=== PATIENT | male | born 1950 | race Caucasian/White ===

== ENCOUNTER 2019-04-16 09:55 | Observation (INO) | payer MEDICARE, OTHER ==
[2019-04-16] MEDS ORDERED: SODIUM CHLORIDE 0.9% 1,000 ML IV STA ×2 (10:28→11:55)
[2019-04-16] MEDS ORDERED: ONDANSETRON 4 MG/2 ML VIAL IVP STA (10:28)
[2019-04-16 10:47] LABS: Basophils % (A) 0 %; Eosinophils # (A) 0.4 k/uL (0-0.7); Eosinophils % (A) 4 %; HCT 39.2 % (39.0-53.0); HGB 13.8 gm/dL (13.0-17.5); Lymphocytes # (A) 1.8 k/uL (1.0-4.8); Lymphocytes % (A) 21 %; MCH 31.6 pg (25.0-35.0); MCHC 35.2 g/dL (31.0-37.0); MCV 89.6 fL (80.0-100.0); Mean Platelet Volume 6.7; Monocytes # (A) 1.1 k/uL (0-1.0); Monocytes % (A) 13 %; Neutrophils # (A) 5.2 k/uL (1.3-7.7); Neutrophils % (A) 61 %; Platelet Count 243 k/uL (150-450); RBC 4.37 m/uL (4.30-5.90); RDW 14.6 % (11.5-15.5); WBC 8.6 k/uL (3.8-10.6)
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
[2019-04-16 11:02] LABS: Albumin 4.3 g/dL (3.5-5.0); Calcium 9.5 mg/dL (8.4-10.2); Total Bilirubin 0.9 mg/dL (0.2-1.3); Total Protein 7.8 g/dL (6.3-8.2)
[2019-04-16 11:05] LABS: Appearance,Urine Clear (Clear); Bilirubin,Urine Negative (Negative); Blood,Urine Negative (Negative); Color,Urine Light Yellow; Glucose,Urine (UA) Negative (Negative); Ketones,Urine Negative (Negative); Leukocyte Esterase,Urine Negative (Negative); Mucus,Urine Rare /hpf; Nitrite,Urine Negative (Negative); PH, Urine 5.5 (5.0-8.0); Protein,Urine 1+ (Negative); RBC,Urine <1 /hpf (0-5); Specific Gravity,Urine 1.008 (1.001-1.035); Urobilinogen,Urine <2.0 mg/dL (<2.0)
[2019-04-16] MEDS ORDERED: LOPERAMIDE 2 MG CAP PO STA (11:26)
[2019-04-16] MEDS ORDERED: ONDANSETRON 4 MG/2 ML VIAL IVP PRN (11:56)
[2019-04-16] MEDS ORDERED: NALOXONE 0.4 MG/ML 1 ML VIAL IV PRN (11:56)
[2019-04-16] MEDS ORDERED: LOPERAMIDE 2 MG CAP PO PRN (11:56)
[2019-04-16] MEDS: 0.9% NACL WITH KCL 20 MEQ/L 1,000 ML IV SCH (14:39)
[2019-04-16] MEDS: FAMOTIDINE 20 MG TAB PO SCH (20:16)
[2019-04-16] MEDS: TAMSULOSIN 0.4 MG CAP.ER.24H PO SCH (20:17)
[2019-04-16] MEDS: LORazepam 1 MG TAB PO PRN (20:19)
[2019-04-16] MEDS ORDERED: amLODIPine 5 MG TAB PO SCH (21:00)
[2019-04-16] MEDS ORDERED: ATORVASTATIN 10 MG TAB PO SCH (21:00)
[2019-04-16] MEDS ORDERED: DIVALPROEX ER 500 MG TAB.ER.24H PO SCH (21:00)
[2019-04-16 22:07] VITALS: RESP 16
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
[2019-04-17] MEDS: 0.9% NACL WITH KCL 20 MEQ/L 1,000 ML IV SCH ×2 (00:21→12:17)
[2019-04-17 07:00] LABS: Glucose,Whole Blood 94 mg/dL (75-99)
[2019-04-17] MEDS ORDERED: ENOXAPARIN 40 MG/0.4 ML SYRINGE SQ SCH (09:00)
[2019-04-17] MEDS ORDERED: DIVALPROEX ER 500 MG TAB.ER.24H PO SCH (09:00)
[2019-04-17] MEDS: FAMOTIDINE 20 MG TAB PO SCH (09:32)
[2019-04-17] MEDS: TAMSULOSIN 0.4 MG CAP.ER.24H PO SCH (09:32)
[2019-04-17] MEDS: LORazepam 1 MG TAB PO PRN (09:43)
[2019-04-17 10:06] LABS: Calcium 8.7 mg/dL (8.4-10.2); Potassium 4.3 mmol/L (3.5-5.1)
[2019-04-17 11:52] VITALS: BP 144/71; PULSE 76; TEMP 98.3
--- NOTE | 2019-04-17 16:02 | US ---
EXAMINATION TYPE: US kidneys/renal and bladder DATE OF EXAM: 04/17/2019 COMPARISON: NONE CLINICAL HISTORY: RF. Diabetic; elevated creatinine level EXAM MEASUREMENTS: Right Kidney: 12.1 x 6.5 x 4.5 cm Left Kidney: 10.8 x 5.3 x 5.9 cm Post Void Residual Volume: not assessed on inpatient Right Kidney: multiple small cysts noted throughout kidney with largest at upper pole = 1.6 x 1.4 x 1 .5cm; poor corticomedullary differentiation is noted Left Kidney: multiple small cysts noted throughout kidney with largest at upper pole = 1.1 x 1.0 x 0. 9cm; poor corticomedullary differentiation is noted Bladder: wnl Bilateral Jets seen: not seen after 3 minute observation IMPRESSION: Poor corticomedullary differentiation suggesting chronic medical renal disease with bilateral renal c ysts.
--- NOTE | 2019-04-17 19:15 | CONS ---
CONSULTATION REASON FOR CONSULT: Renal failure. HISTORY OF PRESENT ILLNESS: Patient is a 68-year-old male who was admitted to the hospital with complaints of nausea and vomiting. Not feeling well. He felt extremely tired. The patient also noticed he had decreased urine output. The patient states he was told he has stage 3 kidney disease for at least a year now. However, he used to follow up with Dr. Tejas Lo in [place] but has not been seen recently. He actually has an appointment to see me in the [place] office in May. The patient denies any use of nonsteroidal anti-inflammatory agents prior to admission. His serum creatinine on admission was 2.43. The patient is maintained on IV fluids. His creatinine is down to 2.02 and we do not have any previous labs available for comparison. The patient states he has been voiding well. PAST MEDICAL HISTORY: Significant for type 2 diabetes, hypertension, stage III CKD, bipolar disorder. PAST SURGICAL HISTORY: Adenoidectomy and tonsillectomy, brain surgery as an . SOCIAL HISTORY: Negative for smoking, drug abuse or alcohol abuse. MEDICATIONS: Prior to admission included Depakote, Ativan, Zantac, Zocor, Flomax, Norvasc. ALLERGIES: None. PHYSICAL EXAMINATION: Patient is currently comfortable, awake, alert, oriented x3, not in any acute distress. Blood pressure was 144/71, heart rate 76 per minute. He is afebrile. Examination of the heart S1, S2. Examination of the lungs, bilateral breath sounds are heard. Abdomen is soft, nontender. Exam of lower extremities shows no significant edema. COMPTROLLER exam grossly intact. LABS: Show sodium 146, potassium 4.3, chloride 116, BUN 24, serum creatinine 2.02. UA shows 1+ protein, otherwise quite unremarkable. ASSESSMENT: 1. Acute kidney injury prerenal currently improved. Continue with IV fluids. 2. Chronic kidney disease stage 3, baseline creatinine not known. The patient is scheduled for followup as outpatient. 3. Metabolic acidosis secondary to renal failure, currently improved. 4. History of bipolar disorder, maintained on Depakote, which we can continue. 5. Dyslipidemia. 6. Benign prostatic hypertrophy, maintained on Flomax. PLAN: Continue with IV fluids. Follow up as outpatient. I will order an ultrasound of the kidneys. The patient can actually be discharged with plans to follow up as outpatient. Thank you for this consultation. We will continue to follow the patient with you during his hospitalization. JESÚS / VAL: [id number] /
--- NOTE | 2019-04-18 00:15 | P.DS ---
Providers Date of admission: 04/16/19 11:56 Expected date of discharge: 04/17/19 Attending physician: Harpreet Leal Consults: 04/16/19 11:56 Consult Physician Stat Consulting Provider: Courtney Mayberry Consult Reason/Comments: Kidney failure with metabolic acidosis Do you want consulting provider notified?: Yes Primary care physician: [facility] Course: History of presenting complaint: This is a 68-year-old patient follows with Dr. Paris. Chronic stable medical conditions include diabetes, GERD, hyperlipidemia, hypertension, chronic kidney disease stage III due to breathing use, chronic anemia chronic pancreatitis. Patient also had cranial surgery as an infant with a plate. Patient lives in a residential called [facility]. patient on Tuesday evening started of with nausea vomiting diarrhea. Also had a low-grade fever and chills. Had some abdominal discomfort. The symptoms continued into yesterday that is Tuesday. Patient is feeling weak tired rundown. And decreased urine output. Given his chronic kidney disease he was concerned about the same and presented to the hospital. Put on IV fluids admitted for the same. Patient's symptoms of gastroenteritis all settled down. Doing well. Responded well to IV fluids good urine output. By the time of discharge feeling well. Discussed at length with the patient. Consultation: Dr. Mayberry from nephrology Physical examination: VITAL SIGNS: 98.3, 76, 16, 140/71, 96% room air GENERAL: Average built, lying in bed, tired appearing. EYES: Pupils equal. Conjunctiva normal. HEENT: External appearance of nose and ears normal, oral cavity a bit dry. NECK: JVD not raised; masses not palpable. HEART: First and second heart sounds are normal; no edema. LUNGS: Respiratory rate normal; clear to auscultation. ABDOMEN: Soft, nontender, liver spleen not palpable, no masses palpable. PSYCH: Alert and oriented x3; mood and affect anxiousl. NEUROLOGICAL: Cranial nerves grossly intact; no facial asymmetry, power and sensation grossly intact. LYMPHATICS: No lymph nodes palpable in the axilla and neck INVESTIGATIONS, reviewed in the clinical context: Creatinine 2.02. It was 2.43 admission. UA shows protein 1+ Valproic acid 50.9 Discharge diagnosis: -Most likely acute food poisoning/acute gastroenteritis causing nausea vomiting diarrhea with associated fever and chills, resolved -Acute dehydration from above, leading to decreased urine output -Chronic kidney disease stage III from prior lithium injury -Metabolic acidosis from chronic kidney injury -Diabetes mellitus type 2 on oral hypoglycemic -GERD -Hyperlipidemia -Hypertensive kidney disease -Anemia of chronic kidney disease -BPH -Bipolar disorder -Acute renal failure, prerenal, POA Disposition: AFC Patient Condition at Discharge: Fair Plan - Discharge Summary Discharge Rx Participant: No New Discharge Prescriptions: Continue Ranitidine HCl [Zantac] 150 mg PO BID LORazepam [Ativan] 1 mg PO TID amLODIPine [Norvasc] 5 mg PO HS Tamsulosin [Flomax] 0.4 mg PO DAILY Simvastatin [Zocor] 20 mg PO HS Divalproex ER [Depakote ER] 1,000 mg PO HS Divalproex ER [Depakote ER] 500 mg PO DAILY Discharge Medication List Divalproex ER [Depakote ER] 1,000 mg PO HS 04/16/19 [History] Divalproex ER [Depakote ER] 500 mg PO DAILY 04/16/19 [History] LORazepam [Ativan] 1 mg PO TID 04/16/19 [History] Ranitidine HCl [Zantac] 150 mg PO BID 04/16/19 [History] Simvastatin [Zocor] 20 mg PO HS 04/16/19 [History] Tamsulosin [Flomax] 0.4 mg PO DAILY 04/16/19 [History] amLODIPine [Norvasc] 5 mg PO HS 04/16/19 [History] Follow up Appointment(s)/Referral(s): Courtney Mayberry MD [STAFF PHYSICIAN] - 1 Week (Dr. Mayberry's office will call patient with an appointment date and time. ) Noe Mendez NPC [REFERRING] - 04/25/19 1:30 pm Ambulatory/Diagnostic Orders: Basic Metabolic Panel [LAB.AMB] Time Frame: 3 Days, Location: None Selected Patient Instructions/Handouts: Acute Kidney Injury (DC), Acute Nausea and Vomiting (ED) Activity/Diet/Wound Care/Special Instructions: Discharge patient at 5 PM. Give IV fluids until discharge. Discharge Disposition: HOME SELF-CARE
[2019-04-18] MEDS ORDERED: FAMOTIDINE 20 MG TAB PO SCH (09:00)
== END 2019-04-17 17:28 | disposition home or self-care (01) ==
LOC: EC 09:55 → 3NMEDONC 11:56
PROVIDERS: ADMIT Hospitalist; ATTEND Hospitalist
DX: R11.2 Nausea with vomiting, unspecified (principal); R19.7 Diarrhea, unspecified; R50.9 Fever, unspecified; E86.0 Dehydration; E11.22 Type 2 diabetes mellitus with diabetic chronic kidney disease; I12.9 Hypertensive chronic kidney disease with stage 1 through stage 4 chronic kidney disease, or unspecified chronic kidney disease; N18.3 Chronic kidney disease, stage 3 (moderate); E87.2 Acidosis; Z79.84 Long term (current) use of oral hypoglycemic drugs; K21.9 Gastro-esophageal reflux disease without esophagitis; E78.5 Hyperlipidemia, unspecified; D63.1 Anemia in chronic kidney disease; N40.0 Benign prostatic hyperplasia without lower urinary tract symptoms; F31.9 Bipolar disorder, unspecified; N17.9 Acute kidney failure, unspecified; R41.3 Other amnesia; Z87.19 Personal history of other diseases of the digestive system; Z87.09 Personal history of other diseases of the respiratory system; Z79.899 Other long term (current) drug therapy; E66.9 Obesity, unspecified; Z68.26 Body mass index [BMI] 26.0-26.9, adult; Z82.0 Family history of epilepsy and other diseases of the nervous system; Z82.49 Family history of ischemic heart disease and other diseases of the circulatory system; Z82.69 Family history of other diseases of the musculoskeletal system and connective tissue
CPT/HCPCS: 96361; 96374; 96375; 99284; 36415; 80164; 80053; 80048; 82150; 83690; 85025; 81001; 76770; G0378 ×2; J2405; J1650

== ENCOUNTER 2024-01-17 17:48 | Inpatient (IN) | payer MEDICARE, OTHER ==
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
[2024-01-17 18:21] LABS: Basophils % (A) 0 %; Eosinophils # (A) 0.3 k/uL (0-0.7); Eosinophils % (A) 3 %; HCT 40.5 % (39.0-53.0); HGB 13.5 gm/dL (13.0-17.5); Lymphocytes # (A) 2.5 k/uL (1.0-4.8); Lymphocytes % (A) 28 %; MCH 32.6 pg (25.0-35.0); MCHC 33.3 g/dL (31.0-37.0); MCV 97.8 fL (80.0-100.0); Mean Platelet Volume 7.2; Monocytes # (A) 0.7 k/uL (0-1.0); Monocytes % (A) 7 %; Neutrophils # (A) 5.6 k/uL (1.3-7.7); Neutrophils % (A) 61 %; Platelet Count 160 k/uL (150-450); RBC 4.14 m/uL (4.30-5.90); RDW 13.9 % (11.5-15.5); WBC 9.2 k/uL (3.8-10.6)
[2024-01-17 18:29] LABS: Partial Thromboplastin Time 22.6 sec (22.0-30.0); Prothrombin Time 11.3 sec (10.0-12.5)
[2024-01-17 18:31] LABS: ALT 18 U/L (4-49); AST 28 U/L (17-59); African American GFR (CKD) 32 (>60 ml/min/1.73 sqM); Albumin 4.2 g/dL (3.5-5.0); Alkaline Phosphatase 66 U/L (38-126); Anion Gap 9 mmol/L; Blood Urea Nitrogen 33 mg/dL (9-20); Calcium 9.9 mg/dL (8.4-10.2); Carbon Dioxide 22 mmol/L (22-30); Chloride 110 mmol/L (98-107); Creatine Kinase 60 U/L (55-170); Glucose 106 mg/dL (74-99); Non-African American GFR(CKD) 27 (>60 ml/min/1.73 sqM); Potassium 4.6 mmol/L (3.5-5.1); Sodium 141 mmol/L (137-145); Total Bilirubin 0.5 mg/dL (0.2-1.3); Total Protein 7.6 g/dL (6.3-8.2)
--- NOTE | 2024-01-17 18:45 | CT ---
EXAMINATION TYPE: CODE STROKE: CT brain wo contr CT DLP: 1231.3 mGycm, Automated exposure control for dose reduction was used. DATE OF EXAM: 01/17/2024 6:16 PM COMPARISON: CT 09/08/2012. CLINICAL INDICATION:Male, 73 years old with history of Neuro deficit, acute, stroke suspected, Right side paralysis, right side facial droop. TECHNIQUE: Brain: Axial CT images of the brain were obtained with coronal and sagittal reformats created and rev iewed. Contrast used: None. Oral contrast used: None. FINDINGS: Extra-axial spaces: No abnormal extra-axial fluid collections. Basilar cisterns are patent. Ventricular system: Ventricles appear dilated in proportion to the degree of cerebral volume loss. Cerebral parenchyma: No increased attenuation to suggest acute intraparenchymal hemorrhage. The gra y-white matter interface appears maintained, without evidence to suggest acute ischemic changes.. Mo derate generalized brain volume loss with a bifrontal predominance redemonstrated. White matter unre markable by CT. Cerebellum: No acute abnormality. Mass effect: No evidence of mass effect or midline shift. Intracranial vasculature: Unremarkable Soft tissues: No acute or concerning abnormality. Visualized orbits: Orbital contents appear grossly intact. Calvarium/osseous structures: Similar appearance of the skull, with chronic and likely postoperative deformities noted superiorly and posteriorly. No acute fracture identified. Paranasal sinuses and mastoid air cells: Mild mucosal thickening in the right maxillary sinus. No sin us air-fluid levels. Mastoid air cells show no appreciable effusion. MRI is more sensitive for detecting acute processes such as infarct, and may be considered if clinica lly warranted. IMPRESSION: No acute intracranial CT abnormality.
--- NOTE | 2024-01-17 19:00 | CT ---
EXAMINATION TYPE: CT angio head neck DATE OF EXAM: 01/17/2024 6:32 PM COMPARISON: Concurrent CT head. CLINICAL INDICATION:Male, 73 years old with history of Neuro deficit, acute, stroke suspected; PHH, R T SIDE PARALYSIS/ RT FACIAL DROOP TECHNIQUE: Axially acquired helical CT angiogram of the head and neck was obtained with contrast. Axi al images are supplemented with 3D reconstructions which [facility] NASCET criteria used. Contrast used: 65ml mL of Isovue 370 with IV Contrast, Oral contrast used: None. CT DLP: 451.8 mGycm, Automated exposure control for dose reduction was used. FINDINGS: CTA Neck: A 3 vessel aortic arch is shown. No significant arch plaque or dissection seen. Right carotid system: The common carotid is patent. Minimal plaque at the bifurcation. There is no he modynamically significant diameter stenosis, dissection, nor pseudoaneurysm present. Left carotid system: The common carotid is patent. Mild mostly calcified plaque at the bifurcation. T here is no hemodynamically significant diameter stenosis, dissection, nor pseudoaneurysm present. Vertebral arteries: There is no significant atherosclerotic plaque at the origin of the right vertebr al artery. Calcified plaque close to the origin of the left vertebral artery with no significant stenosis suspec nghia. The vertebrals are then otherwise patent to the skull base. The right vertebral artery is dominant. Other: Visualized neck soft tissues show no concerning abnormality. Cervical spine shows mild degener ative changes. There is a patch of sclerosis in the T4 vertebral body, nonspecific; correlate for any cancer history, otherwise may be benign. Imaged portions of the lung apices are clear. CTA Head: Intracranial ICAs are patent. On the right, at the terminus the A1 segment ELENA is noted to be hypopla stic, with the distal aspect supplied from the left across the anterior communicating artery. Both AC As appear to be patent. On the left, terminus is unremarkable. There are patent bilateral MCAs and th e distal arborization patterns appear normal bilaterally. There is a patent right posterior communica ting artery. No appreciable left posterior communicating artery of any size. The intracranial vertebral arteries enhance normally. Basilar artery is patent and unremarkable. Norm al basilar bifurcation without evidence of aneurysm. Visualized proximal material spreader are patent. No intracranial large vessel occlusion, hemodynamically significant stenosis, aneurysm, dissection, o r arteriovenous malformation is shown. The dural venous sinuses show no gross evidence of thrombosis. Other: Please refer to same-day CT head report for further description of findings. IMPRESSION: CTA neck: 1. Patent CTA neck. No dissection or pseudoaneurysm detected in the carotid or vertebral arteries in the neck. 2. Mild atherosclerotic disease is present, without evidence of hemodynamically significant stenosis at the carotid bifurcations/proximal ICAs. CTA head: Patent CTA head. No intracranial large vessel occlusion, significant stenosis, or sizable aneurysm de tected in the limits of CTA.
[2024-01-17] MEDS: ASPIRIN 325 MG TAB PO STA (21:04)
[2024-01-17] MEDS: SODIUM CHLORIDE 0.9% 1,000 ML IV SCH (21:05)
--- NOTE | 2024-01-17 22:00 | XR ---
EXAMINATION TYPE: XR chest 2V DATE OF EXAM: 01/17/2024 9:56 PM CLINICAL INDICATION:Male, 73 years old with history of altered mental status; [facility] COMPARISON: Chest radiographs from 08/30/2012 TECHNIQUE: XR chest 2V Frontal and lateral views of the chest. FINDINGS: Lungs/Pleura: There is flattening of the diaphragm with increased lucency of the lungs. No evidence o f pneumothorax, pleural effusion or focal consolidation. Pulmonary vascularity: Unremarkable. Heart/mediastinum: Cardiomediastinal silhouette is unremarkable. Musculoskeletal: No acute osseous pathology. IMPRESSION: 1. No acute cardiopulmonary disease process. 2. COPD changes.
[2024-01-17] MEDS: LORazepam 1 MG TAB PO PRN (22:08)
[2024-01-18] MEDS: TAMSULOSIN 0.4 MG CAP.ER.24H PO SCH (06:10)
[2024-01-18] MEDS: amLODIPine 5 MG TAB PO SCH (06:10)
[2024-01-18] MEDS: DIVALPROEX ER 500 MG TAB.ER.24H PO SCH ×2 (06:11→21:37)
[2024-01-18] MEDS: allopurinoL 100 MG TAB PO SCH (06:12)
[2024-01-18] MEDS: ASPIRIN 325 MG TAB PO SCH (08:33)
[2024-01-18 09:35] LABS: Chol/HDL Ratio 3.05 Ratio; LDL Cholesterol,Calculated 74.8 mg/dL (0.0-131.0)
[2024-01-18 11:42] LABS: African American GFR (CKD) 39 (>60 ml/min/1.73 sqM); Anion Gap 5 mmol/L; Blood Urea Nitrogen 28 mg/dL (9-20); Calcium 9.3 mg/dL (8.4-10.2); Carbon Dioxide 23 mmol/L (22-30); Chloride 111 mmol/L (98-107); Glucose 229 mg/dL (74-99); Non-African American GFR(CKD) 34 (>60 ml/min/1.73 sqM); Sodium 139 mmol/L (137-145)
[2024-01-18 11:45] LABS: Potassium 4.4 mmol/L (3.5-5.1)
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
[2024-01-18] MEDS: CLOPIDOGREL 75 MG TAB PO SCH (15:11)
--- NOTE | 2024-01-18 16:34 | CA ---
Transthoracic Echo Report Name: Ray Francisco Age: 73 Gender: M : 1950 Exam Date: 01/18/2024 10:46 Exam Location: [facility] Ht (in): 71 Wt (lb): 139 Ordering Physician: Alan Santana DO Attending/Referring Phys: Communication Instructor Aida Cheema RDCS Procedure CPT: Indications: Thrombus Cardiac Hx: Technical Quality: Very technically difficult study Contrast 1: Total Dose (mL): Contrast 2: Total Dose (mL): MEASUREMENTS (Male / Female) Normal Values 2D ECHO LV Diastolic Diameter PLAX 4.8 cm 4.2 - 5.9 / 3.9 - 5.3 cm LV Systolic Diameter PLAX 2.9 cm IVS Diastolic Thickness 1.1 cm 0.6 - 1.0 / 0.6 - 0.9 cm LVPW Diastolic Thickness 1.3 cm 0.6 - 1.0 / 0.6 - 0.9 cm LV Relative Wall Thickness 0.5 DOPPLER AV Peak Velocity 149.7 cm/s AV Peak Gradient 9.0 mmHg AV Mean Velocity 102.6 cm/s AV Mean Gradient 4.7 mmHg AV Velocity Time Integral 26.2 cm LVOT Peak Velocity 122.2 cm/s LVOT Peak Gradient 6.0 mmHg LVOT Velocity Time Integral 24.8 cm MV Area PHT 4.0 cm??? Mitral E Point Velocity 66.2 cm/s Mitral A Point Velocity 81.7 cm/s Mitral E to A Ratio 0.8 MV Deceleration Time 190.5 ms TR Peak Velocity 260.5 cm/s TR Peak Gradient 27.1 mmHg Right Ventricular Systolic Press 32.1 mmHg FINDINGS Left Ventricle Mildly increased left ventricular wall thickness. Left ventricular cavity size normal. Left ventricular ejection fraction is estimated at 55 %. Right Ventricle Right ventricle not well visualized. Right ventricular systolic pressure within normal limits. Right Atrium Right atrium not well visualized. Left Atrium Left atrium not well visualized. Mitral Valve Mitral valve not well visualized. No mitral regurgitation. No mitral stenosis. Aortic Valve Aortic valve not well visualized. No aortic stenosis. No aortic regurgitation. Tricuspid Valve Tricuspid valve not well visualized. Mild tricuspid regurgitation. Pulmonic Valve Pulmonic valve not well visualized. Pericardium No pericardial effusion. Aorta Aortic root and proximal ascending aorta not well visualized. CONCLUSIONS Very technically difficult study. Limited study to look for LV thrombus. No clear evidence of LV thrombus on contrast imaging. LVEF 50 to 55% Cannot comment on wall motion abnormality or valvular function due to limited imaging Previewed by: Dr Atilio Guzman (Electronically Signed) Final Date: 18 Jan 2024 16:33
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
[2024-01-18] MEDS ORDERED: ATORVASTATIN 10 MG TAB PO SCH (19:00)
[2024-01-18 20:40] LABS: Glucose,Whole Blood 122 mg/dL (70-110)
[2024-01-18] MEDS: ATORVASTATIN 40 MG TAB PO SCH (21:37)
[2024-01-18] MEDS: FAMOTIDINE 20 MG TAB PO SCH (21:37)
[2024-01-18] MEDS: HEPARIN SODIUM,PORCINE 5,000 UNIT/ML 1 ML VIAL SQ SCH (21:37)
[2024-01-19 05:55] LABS: Glucose,Whole Blood 102 mg/dL (70-110)
[2024-01-19] MEDS: ASPIRIN 81 MG PO SCH (09:57)
[2024-01-19 11:22] LABS: Glucose,Whole Blood 122 mg/dL (70-110)
[2024-01-19 13:11] LABS: African American GFR (CKD) 39 (>60 ml/min/1.73 sqM); Anion Gap 8 mmol/L; Blood Urea Nitrogen 23 mg/dL (9-20); Calcium 9.7 mg/dL (8.4-10.2); Carbon Dioxide 22 mmol/L (22-30); Chloride 111 mmol/L (98-107); Glucose 118 mg/dL (74-99); Non-African American GFR(CKD) 34 (>60 ml/min/1.73 sqM); Potassium 4.5 mmol/L (3.5-5.1); Sodium 141 mmol/L (137-145)
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
[2024-01-19 16:19] LABS: Glucose,Whole Blood 158 mg/dL (70-110)
[2024-01-19 19:48] LABS: Glucose,Whole Blood 163 mg/dL (70-110)
[2024-01-20 06:03] LABS: Glucose,Whole Blood 95 mg/dL (70-110)
--- NOTE | 2024-01-20 10:53 | P.PN ---
Subjective Progress Note Date: 01/19/24 Patient was seen for a follow-up. Patient is laying comfortably in the bed. Offers no new complaints. He states he feels "little better than yesterday". Objective - Vital Signs Vital signs: Vital Signs Temp 97.8 F 01/19/24 08:00 Pulse 78 01/19/24 14:00 Resp 16 01/19/24 14:00 BP 132/82 01/19/24 12:00 Pulse Ox 98 01/19/24 12:00 FiO2 Intake & Output 01/18/24 01/19/24 01/19/24 18:59 06:59 18:59 Intake Total 180 Output Total 800 900 Balance -800 -720 Weight 63.049 kg Intake: Oral 180 Output: Urine 800 900 Other: Voiding Method External Catheter External Catheter # Voids 0 # Bowel Movements 0 - Exam Unchanged. - Labs CBC & Chem 7: 01/17/24 18:02 01/19/24 12:20 Labs: Abnormal Lab Results - Last 24 Hours (Table) 01/17/24 01/18/24 01/19/24 Range/Units 18:02 20:38 11:20 Chloride (98-107) mmol/L BUN (9-20) mg/dL Creatinine (0.66-1.25) mg/dL Glucose (74-99) mg/dL POC Glucose (mg/dL) 122 H 122 H (70-110) mg/dL Hemoglobin A1c 6.5 H (<=6.0) % 01/19/24 01/19/24 Range/Units 12:20 16:17 Chloride 111 H (98-107) mmol/L BUN 23 H (9-20) mg/dL Creatinine 1.94 H (0.66-1.25) mg/dL Glucose 118 H (74-99) mg/dL POC Glucose (mg/dL) 158 H (70-110) mg/dL Hemoglobin A1c (<=6.0) % Assessment and Plan Assessment: * Possible acute stroke, manifesting with right sided weakness, and slurred speech. Patient's current NIH stroke scale is 4. * History of a falling out of bed while sleeping 6 weeks ago, with persistent imbalance and urine control issues since then. * Diabetes * Hypertension * Hyperlipidemia * History of cranial stenosis surgery at 3 months of age * Previous history of alcohol use * Bipolar depression Plan: Await MRI of the brain without contrast, evaluate for acute CVA 2-D echo revealed very technically difficult study. Left ventricular cavity size is normal. LVEF is 55%. Left atrium not well-visualized. Mitral and aortic valves are normal. Cannot comment on wall motion abnormality or valvular function due to limited imaging. No clear evidence of LV thrombus on contrast imaging. CTA head and neck showed: No dissection or pseudoaneurysm detected in the carotid or vertebral arteries in the neck. Mild atherosclerotic disease is pre sent, without evidence of hemodynamically significant stenosis at the carotid bifurcations/proximal ICAs. Patent CTA of head. No aneurysm, occlusion or stenosis. Fasting a.m. lipid panel cholesterol 144, LDL 74, HDL 47, triglycerides 110. Patient was taking Zocor 20 mg daily at home. Agree with increasing to Lipitor 40 mg daily. Hemoglobin A1c B12 609, folate 13.80, MMA pending. Depakote level 104, which is therapeutic. Permissive hypertension for next 24-48 hours Patient was not taking any antiplatelet medication at home. Patient has been loaded with aspirin 325 mg in the ER. Patient will be maintained on aspirin 81 mg and Plavix 75 mg for now, pending further testing. Neuro checks as per protocol. Telemetry monitoring rule out any arrhythmia PT, OT, speech therapy DVT prophylaxis: Heparin 5000 units subcu every 12 hours
[2024-01-20 11:14] LABS: Glucose,Whole Blood 184 mg/dL (70-110)
[2024-01-20 16:10] LABS: Glucose,Whole Blood 231 mg/dL (70-110)
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
--- NOTE | 2024-01-20 18:48 | MR ---
EXAMINATION TYPE: MR brain wo/w con DATE OF EXAM: 01/20/2024 3:49 PM CLINICAL INDICATION:Male, 73 years old with history of Acute right-sided weakness, right facial weakn ess, Acute right-sided weakness, right facial weakness. COMPARISON: 01/17/2024 TECHNIQUE: Multi planar, multi sequence imaging was performed through the brain including: T1, T2, In version recovery, susceptibility weighted imaging and gradient echo imaging and Diffusion weighted im aging. The patient was then given intravenous contrast and multi planar, T1 fat-saturation images wer e obtained. IV Contrast: 6.5 cc Gadavist FINDINGS: Focus of restricted diffusion within the left posterior limb of the internal capsule/[place] us. Mild cerebral atrophy with proportional dilation of ventricular system. a small focus of enhancem ent in the right basal ganglia series 802 image 16. Intracranial arterial flow voids are maintained. Midline structures show no abnormality. Scattered foci of high T2 signal intensity are seen within th e periventricular white matter. The susceptibility weighted images do not reveal any evidence for any ro-hemorrhage. The bone marrow signal is within normal limits. Paranasal sinuses and mastoid air cells: No significant paranasal sinus disease. Visualized orbits: Orbital contents are intact. IMPRESSION: 1. Acute/subacute CVA involving the left posterior limb of the internal capsule/thalamus. 2. Indeterminate focus of enhancement within the right basal ganglia. There is no CT correlate. Findi ngs could represent small vascular anomaly versus remote infarct . Consider short-term follow-up in 3 -6 months. 3. Nonspecific white matter changes, likely related to small vessel ischemic disease.
[2024-01-20 20:08] LABS: Glucose,Whole Blood 128 mg/dL (70-110)
--- NOTE | 2024-01-21 09:53 | P.PN ---
Subjective Progress Note Date: 01/20/24 Patient was seen for a follow-up. Patient is laying comfortably in the bed. Offers no new complaints. Patient just returned from MRI. Objective - Vital Signs Vital signs: Vital Signs Temp 97.8 F 01/20/24 16:18 Pulse 73 01/20/24 16:18 Resp 15 01/20/24 16:18 BP 151/85 01/20/24 16:18 Pulse Ox 99 01/20/24 16:18 FiO2 Intake & Output 01/19/24 01/20/24 01/20/24 18:59 06:59 18:59 Intake Total 360 360 Output Total 1700 1800 900 Balance -1340 -1800 -540 Intake: Oral 360 360 Output: Urine 1700 1800 900 Other: Voiding Method External Catheter External Catheter External Catheter # Bowel Movements 1 - Exam Patient is alert and awake. His speech is slightly slurred. No aphasia. Cranial nerves significant for right facial droop. Visual back are full. Tongue protrudes to midline. On muscle strength testing, patient has right pronator drift of about 10 degree. Sensory to touch is equal with no neglect. Patient has ataxia of the right upper extremity. He is slightly tremulous for the left upper extremity but no ataxia. No ataxia in the lower extremities on either side. - Labs CBC & Chem 7: 01/17/24 18:02 01/19/24 12:20 Labs: Abnormal Lab Results - Last 24 Hours (Table) 01/19/24 01/20/24 01/20/24 Range/Units 19:46 11:13 16:07 POC Glucose (mg/dL) 163 H 184 H 231 H (70-110) mg/dL Assessment and Plan Assessment: * Acute ischemic stroke involving the left posterior limb of the internal capsule, likely a lacunar infarct from small vessel disease. Stroke symptoms manifesting with right sided weakness, and slurred speech. Patient's current NIH stroke scale is 4. * History of a falling out of bed while sleeping 6 weeks ago, with persistent imbalance and urine control issues since then. * Diabetes * Hypertension * Hyperlipidemia * History of cranial stenosis surgery at 3 months of age * Previous history of alcohol use * Bipolar depression Plan: * MRI of the brain without contrast revealed acute/subacute CVA involving the left posterior limb of the internal capsule/thalamus. Indeterminate focus of enhancement within the right basal ganglia. There is no CT correlate. Findings could represent small vascular anomaly versus remote infarct. Consider short-term follow-up in 3 to 6 months. Nonspecific white matter changes, likely related to small vessel ischemic disease. I personally reviewed MRI, and the stroke is involving the left posterior limb of internal capsule. Not involving the thalamus. Other findings agree. * 2-D echo revealed very technically difficult study. Left ventricular cavity size is normal. LVEF is 55%. Left atrium not well-visualized. Mitral and aortic valves are normal. Cannot comment on wall motion abnormality or valvular function due to limited imaging. No clear evidence of LV thrombus on contrast imaging. * CTA head and neck showed: No dissection or pseudoaneurysm detected in the carotid or vertebral arteries in the neck. Mild atherosclerotic disease is present, without evidence of hemodynamically significant stenosis at the carotid bifurcations/proximal ICAs. Patent CTA of head. No aneurysm, occlusion or stenosis. * Fasting a.m. lipid panel cholesterol 144, LDL 74, HDL 47, triglycerides 110. Patient was taking Zocor 20 mg daily at home. Agree with increasing to Lipitor 40 mg daily. * Hemoglobin A1c 6.5, diabetes well-controlled * B12 609, folate 13.80, MMA pending. * Depakote level 104, which is therapeutic. * Optimize control of blood pressure to normotensive level * Patient was not taking any antiplatelet medication at home. Patient has been loaded with aspirin 325 mg in the ER. Recommend continue aspirin 81 mg and Plavix 75 mg for 21 days, then stop Plavix and continue aspirin indefinitely. * Telemetry monitoring rule out any arrhythmia * PT, OT, speech therapy * DVT prophylaxis: Heparin 5000 units subcu every 12 hours * Recommend patient follow-up with neurologist in 1 to 2 weeks after discharge, to follow-up on the MRI. Neurologically clear for transfer to rehab.
--- NOTE | 2024-01-21 12:34 | P.DS ---
Providers Date of admission: 01/17/24 20:46 Expected date of discharge: 01/21/24 Attending physician: Harpreet Leal Consults: 01/17/24 20:45 Consult Physician Urgent Consulting Provider: Juan Bone Consult Reason/Comments: cva Do you want consulting provider notified?: Yes Primary care physician: Seth Paris [facility] Course: Final diagnosis Acute/subacute CVA involving the left posterior limb of the internal capsule as noted on MRI with right-sided weakness and right facial weakness with dysarthria Acute gait dysfunction with generalized weakness secondary to above Acute dysarthria Hypertension GERD Chronic kidney disease stage III with nephrosclerosis Hyperlipidemia History of BPH Bipolar with mood disorder history GI prophylaxis DVT prophylaxis Full code Discharge disposition Patient is being discharged in a stable condition with guarded prognosis to [facility] for continued PT/OT therapy. Patient will follow-up with Dr. Paris in the outpatient setting upon discharge. Patient is to continue with Plavix and aspirin for 21 days and then discontinue Plavix, continue aspirin indefinitely. Patient will need outpatient follow-up with neurology in 1 to 2 w eeks as scheduled. Total time taken is greater than 35 minutes. Hospital course This is a 73-year-old male who was recently admitted with right-sided weakness and facial weakness with dysarthria being closely monitored. Patient evaluated by neurology and initial CT was negative, MRI confirms acute versus subacute CVA involving the left posterior limb of the internal capsule. Patient is placed on aspirin and Plavix and per neurology recommendations increase statin therapy and also continue with Plavix for 21 days and then discontinu, continue with aspirin indefinitely. Patient will need outpatient neurology follow-up. Patient evaluated by PT/OT therapy recommending rehab and patient is agreeable. Patient has received insurance authorization for [facility] and [facility]. Please refer to neurology notes for further HPI. Currently no reports of chest pain, shortness of breath, or palpitations. Patient is afebrile. No reports of nausea or vomiting and patient is tolerating diet. Patient will be going to [facility] today. Guarded prognosis given significant comorbidities Physical exam: Gen: This is a 73-year-old male who is awake, alert and oriented x 2, baseline, thin built, elderly appearing, ill-appearing HEENT: Head is atraumatic, normocephalic. Pupils equal, round. Sclerae is anicteric. NECK: Supple. No JVD. No lymphadenopathy. No thyromegaly. LUNGS: Clear to auscultation. No wheezes or rhonchi. No intercostal retractions. HEART: Regular rate and rhythm. No murmur. ABDOMEN: Soft. Bowel sounds are present. No masses. No tenderness. EXTREMITIES: No pedal edema. No calf tenderness. NEUROLOGICAL: Patient is awake, alert and oriented x2. Diffusely weak with right-sided weakness noted Please refer to medication reconciliation sheet for a list of medications. The impression and plan of care has been dictated by Kerri Onofre, Nurse Practitioner as directed. Dr. Ramy MD I have performed a history and examination and MDM of this patient, discussed the same with the dictator, and agree with the dictator's assessment and plan as written ,documented as a scribe. Based on total visit time, I have performed more than 50% of the visit. Patient Condition at Discharge: Fair Plan - Discharge Summary Discharge Rx Participant: No New Discharge Prescriptions: No Action LORazepam [Ativan] 1 mg PO TID@0700,1700,2100 PRN PRN Reason: Anxiety amLODIPine [Norvasc] 5 mg PO DAILY@0700 Tamsulosin [Flomax] 0.4 mg PO DAILY@0700 Simvastatin [Zocor] 20 mg PO DAILY@1900 Divalproex ER [Depakote ER] 1,000 mg PO HS@1900 Divalproex ER [Depakote ER] 500 mg PO DAILY@0700 allopurinoL [Zyloprim] 100 mg PO DAILY@0700 Famotidine [Pepcid] 20 mg PO DAILY@1900 Discharge Medication List Divalproex ER [Depakote ER] 1,000 mg PO HS@1900 04/16/19 [History] Divalproex ER [Depakote ER] 500 mg PO DAILY@0700 04/16/19 [History] LORazepam [Ativan] 1 mg PO TID@0700,1700,2100 PRN 04/16/19 [History] Simvastatin [Zocor] 20 mg PO DAILY@1900 04/16/19 [History] Tamsulosin [Flomax] 0.4 mg PO DAILY@0700 04/16/19 [History] amLODIPine [Norvasc] 5 mg PO DAILY@0704/16/19 [History] Famotidine [Pepcid] 20 mg PO DAILY@19001/17/24 [History] allopurinoL [Zyloprim] 100 mg PO DAILY@69901/17/24 [History] Follow up Appointment(s)/Referral(s): Seth Paris MD [Primary Care Provider] - 1-2 days
[2024-01-21 13:23] VITALS: BP 166/83; PULSE 86; RESP 20; TEMP 98.2
== END 2024-01-21 15:30 | DRG 65 ==
LOC: EC 17:48 → 3SCARD 20:46 → 5NMEDONC 01-21 00:22
PROVIDERS: ADMIT Hospitalist; ATTEND Hospitalist
DX: I63.81 Other cerebral infarction due to occlusion or stenosis of small artery (principal); F31.30 Bipolar disorder, current episode depressed, mild or moderate severity, unspecified; G81.91 Hemiplegia, unspecified affecting right dominant side; I67.89 Other cerebrovascular disease; D63.1 Anemia in chronic kidney disease; E11.22 Type 2 diabetes mellitus with diabetic chronic kidney disease; G40.909 Epilepsy, unspecified, not intractable, without status epilepticus; N18.30 Chronic kidney disease, stage 3 unspecified; I12.9 Hypertensive chronic kidney disease with stage 1 through stage 4 chronic kidney disease, or unspecified chronic kidney disease; J44.9 Chronic obstructive pulmonary disease, unspecified; F10.21 Alcohol dependence, in remission; R29.710 NIHSS score 10; R47.1 Dysarthria and anarthria; K21.9 Gastro-esophageal reflux disease without esophagitis; E78.5 Hyperlipidemia, unspecified; N40.0 Benign prostatic hyperplasia without lower urinary tract symptoms; F41.9 Anxiety disorder, unspecified; Z79.899 Other long term (current) drug therapy; W06.XXXA Fall from bed, initial encounter
CPT/HCPCS: 36415; 70450; 70496; 70498; 70553; 71046; 80048; 80053; 80061; 80164; 82550; 82607; 82746; 83036; 83921; 85025; 85610; 85730; 93005; 93306; 99291